=== PATIENT | female | born 1960 | race Caucasian/White ===

== ENCOUNTER 2017-01-11 12:49 | Emergency (ER) | payer OTHER ==
[2017-01-11 12:57] VITALS: RESP 18
--- NOTE | 2017-01-11 13:58 | C.PDOC ---
History Of Present Illness 56 y/o female, with PMHx of arthritis, presents to the ED for evaluation of bilateral hand pain worse in the fingers for the past several days. Describes pain as throbbing and much more severe in the left hand. Also reports tingling sensation to left hand 2nd, 3rd, 4th digits. Notes being seen by Dr. Sol 1 week ago and was prescribed Meloxicam which she has been taking without any improvement. Patient is requesting x-ray of hand. Otherwise, denies any injury, trauma, fever, or any other associated symptoms at this time. Time Seen by Provider: 01/11/17 13:02 Chief Complaint (Nursing): Upper Extremity Problem/Injury History Per: Patient History/Exam Limitations: no limitations Onset/Duration Of Symptoms: Days Current Symptoms Are (Timing): Still Present Quality: Other (throbbing) Exacerbating Factor(s): Nothing Recent travel outside of the [place]: No Additional History Per: Patient Past Medical History Reviewed: Historical Data, Nursing Documentation, Vital Signs Vital Signs: Last Vital Signs Temp 97 F L 01/11/17 14:11 Pulse 65 01/11/17 14:11 Resp 18 01/11/17 14:11 BP 103/69 01/11/17 14:11 Pulse Ox 96 01/11/17 15:09 - Medical History PMH: Arthritis, Hypothyroidism Family History: States: Unknown Family Hx - Social History Hx Alcohol Use: No Hx Substance Use: No - Immunization History Hx Tetanus Toxoid Vaccination: No Hx Influenza Vaccination: Yes Hx Pneumococcal Vaccination: No Review Of Systems Except As Marked, All Systems Reviewed And Found Negative. Constitutional: Negative for: Fever, Chills Musculoskeletal: Positive for: Hand Pain Skin: Negative for: Rash, Bruising Neurological: Negative for: Weakness, Numbness Physical Exam - Physical Exam Appears: Non-toxic, No Acute Distress Skin: Normal Color, Warm, Dry Head: Atraumatic, Normacephalic Extremity: Normal ROM (FROM b/l hands), No Tenderness, Capillary Refill (< 2 sec.), No Deformity, No Swelling (no swelling or nodules to bilateral hands) Extremity: Bilateral: Atraumatic, Normal Color And Temperature, Normal ROM Pulses: Left Radial: Normal, Right Radial: Normal Neurological/Psych: Oriented x3, Normal Speech, Normal Motor, Normal Sensation ED Course And Treatment O2 Sat by Pulse Oximetry: 96 (RA) Pulse Ox Interpretation: Normal - Other Rad Left hand x-ray X-Ray: Viewed By Me, Read By Radiologist Interpretation: FINDINGS: BONES: There is no acute displaced fracture or bone destruction. Bone alignment is normal. JOINTS: Normal. No significant osteoarthritic changes. SOFT TISSUES: Normal. OTHER FINDINGS: None. IMPRESSION: No acute fracture or dislocation. Progress Note: Left hand x-ray ordered and reviewed. Patient was treated with Gabapentin. On reassessment, patient is resting comfortably, and is in no acute distress. Patient was instructed to follow up with physician/clinic in 1-2 days. Disposition Counseled Patient/Family Regarding: Diagnosis, Need For Followup, Rx Given - Disposition Referrals: Mckay Sol MD [Staff Provider] - Disposition: HOME/ ROUTINE Disposition Time: 13:58 Condition: STABLE Additional Instructions: Rivera aki X era normal Por favor tome rivera medicamento para el dolor habitual segn lo prescrito [place] gabapentin silvano vez al da y siga con rivera mdico de la artritis Prescriptions: Gabapentin 300 mg PO DAILY #20 capsule Instructions: Arthralgia (ED) Forms: [employer] (Kiswahili) Print Language: BRITISH - POA Present On Arrival: None - Clinical Impression Clinical Impression: Arthralgia of hands, bilateral - PA / FITNESS SPECIALIST / Resident Statement MD/DO has reviewed & agrees with the documentation as recorded. - Scribe Statement The provider has reviewed the documentation as recorded by the Scribe Debra Mulligan All medical record entries made by the Scribe were at my direction and personally dictated by me. I have reviewed the chart and agree that the record accurately reflects my personal performance of the history, physical exam, medical decision making, and the department course for this patient. I have also personally directed, reviewed, and agree with the discharge instructions and disposition.
[2017-01-11 14:13] VITALS: BP 103/69; PULSE 65; TEMP 97
--- NOTE | 2017-01-11 14:34 | RAD ---
PROCEDURE: Left Hand Radiographs. HISTORY: h.o arthritis has pain for months, pt requests xra COMPARISON: None. FINDINGS: BONES: There is no acute displaced fracture or bone destruction. Bone alignment is normal. JOINTS: Normal. No significant osteoarthritic changes. SOFT TISSUES: Normal. OTHER FINDINGS: None. IMPRESSION: No acute fracture or dislocation.
[2017-01-11 15:10] VITALS: O2SAT 96
== END 2017-01-11 14:12 | disposition home or self-care (01) ==
LOC: C.ER 12:49
DX: M79.642 Pain in left hand (principal); M79.641 Pain in right hand

== ENCOUNTER 2017-12-24 09:23 | Emergency (ER) | payer OTHER ==
[2017-12-24 09:49] VITALS: TEMP 98.4
--- NOTE | 2017-12-24 10:42 | C.PDOC ---
History Of Present Illness 57 y/o female w/PMHx of OA, presents to ED with c/o x2 episodes of blood in stool for 3 days. PAtient describes, " noted blood on top of stool and when I wipe myself". Otherwise, pt denies fever, chills, headache, dizziness, weakness , CP, SOB, abd. pain, nausea, vomiting, UTi sx, back pain, denies change in appetite or stool. Pt admits, suffer from intermittent constipation, other denies any other complaints at this time. Ambulate to Ed for evaluation, not in any apparent distress. Time Seen by Provider: 12/24/17 09:54 Chief Complaint (Nursing): GI Problem History Per: Patient History/Exam Limitations: no limitations Onset/Duration Of Symptoms: Days, Waxing/Waning Past Medical History Reviewed: Historical Data, Nursing Documentation, Vital Signs Vital Signs: Last Vital Signs Temp 98.4 F 12/24/17 09:43 Pulse 94 H 12/24/17 09:43 Resp 20 12/24/17 09:43 BP 113/74 12/24/17 09:43 Pulse Ox 99 12/24/17 10:47 - Medical History PMH: Arthritis, Hypothyroidism Surgical History: No Surg Hx Family History: States: No Known Family Hx - Social History Hx Alcohol Use: No Hx Substance Use: No - Immunization History Hx Tetanus Toxoid Vaccination: No Hx Influenza Vaccination: Yes Hx Pneumococcal Vaccination: No Review Of Systems Constitutional: Negative for: Fever, Chills Gastrointestinal: Positive for: Abdominal Pain, Hematochezia. Negative for: Nausea, Vomiting Genitourinary: Negative for: Dysuria Musculoskeletal: Negative for: Back Pain Skin: Negative for: Rash Physical Exam - Physical Exam Appears: Well, Non-toxic, No Acute Distress Skin: Warm, Dry, No Rash Head: Normacephalic Oral Mucosa: Moist Neck: Trachea Midline, Supple Cardiovascular: Rhythm Regular, No Murmur, No JVD Respiratory: No Decreased Breath Sounds, No Accessory Muscle Use, No Rales, No Rhonchi, No Stridor, No Wheezing Gastrointestinal/Abdominal: Soft, No Tenderness, No Distention, No Guarding, No Rebound Rectal: Rectal Tone (normal), Heme Negative, No Maroon Stool, No Melena, Hemorrhoids (small external, non-thrombosed) Back: No CVA Tenderness Extremity: Normal ROM, No Deformity, No Swelling Neurological/Psych: Oriented x3, Normal Speech ED Course And Treatment O2 Sat by Pulse Oximetry: 99 (RA) Pulse Ox Interpretation: Normal - Other Rad Abd, 2 views X-Ray: Interpreted by Me, Viewed By Me Interpretation: (-) air-fluid, (+) gas patternt c/w constipation. Progress Note: On re-eval, pt is afebrile, hemodynamicaly stable, not in any apparent distress. NOn-toxic. ENT: no acute findings, uvula midline, no edema. Neck: Supple, (-) meningeal sign. Lungs: CTA B/L, BS equal B/L. Abd: benign, (-) guarding, (-) rebound. Back: (-) CVA tenderness. Abd xray review, no acute abnormalities. Pt has clinical finidngs c/w external hemorroids. Pt advised. ref. to f/u with PMD, Surgery in 2-3 days for re-eval. return if any new changes. Disposition Counseled Patient/Family Regarding: Studies Performed, Diagnosis, Need For Followup, Rx Given - Disposition Referrals: Apollo Jacobs MD [Staff Provider] - Disposition Time: 10:47 Condition: STABLE Additional Instructions: Encourage fluids take medication as need as prescribed Follow up with PMD, Surgery in 2-3 days for re-evaluation. return if any new changes. Prescriptions: Dibucaine 1 applic TP BID #1 tube Polyethylene Glycol 3350 [Miralax] 17 gm PO DAILY #1 bottle Instructions: High Fiber Diet, Constipation, Adult (DC) Forms: [employer] (Grenadian) Print Language: SLOVENIAN - Clinical Impression Clinical Impression: Hemorrhoids - PA / SENIOR FINANCIAL REPORTING ACCOUNTANT / Resident Statement MD/DO has reviewed & agrees with the documentation as recorded. - Scribe Statement The provider has reviewed the documentation as recorded by the Saray Santiago All medical record entries made by the Saray were at my direction and personally dictated by me. I have reviewed the chart and agree that the record accurately reflects my personal performance of the history, physical exam, medical decision making, and the department course for this patient. I have also personally directed, reviewed, and agree with the discharge instructions and disposition.
--- NOTE | 2017-12-24 11:37 | RAD ---
Date of service: 12/24/2017 HISTORY: pain, constipation COMPARISON: No prior. FINDINGS: BOWEL: Prominent amount of retained colonic stool. No obstruction. No free air. BONES: Normal. OTHER FINDINGS: Calcified cholelithiasis. IMPRESSION: Prominent amount of retained colonic stool. Calcified cholelithiasis.
[2017-12-24 11:53] VITALS: BP 128/74; PULSE 80; RESP 18; O2SAT 97
== END 2017-12-24 11:53 | disposition home or self-care (01) ==
LOC: C.ER 09:23
DX: K64.4 Residual hemorrhoidal skin tags (principal)

== ENCOUNTER 2018-02-18 05:25 | Emergency (ER) | payer OTHER ==
--- NOTE | 2018-02-18 05:38 | C.PDOC ---
History Of Present Illness pt woke up with epigastric pain with nausea and vomiting. Pain radiating to the back. No f/c/ Tolerating po. Dull cramping pain Time Seen by Provider: 02/18/18 05:37 Chief Complaint (Nursing): Abdominal Pain History Per: Patient History/Exam Limitations: no limitations Onset/Duration Of Symptoms: Days Current Symptoms Are (Timing): Still Present Context: Other Severity: Moderate Pain Scale Rating Of: 4 Radiation Of Pain To:: Back Quality Of Discomfort: Sharp, Cramping Associated Symptoms: Nausea, Vomiting. denies: Fever, Chills Exacerbating Factors: None Alleviating Factors: None Last Bowel Movement: Yesterday Recent travel outside of the [place]: No Additional History Per: Patient Abnormal Vaginal Bleeding: No Past Medical History Reviewed: Historical Data, Nursing Documentation, Vital Signs Vital Signs: Last Vital Signs Temp 97.8 F 02/18/18 05:33 Pulse 117 H 02/18/18 05:33 Resp 20 02/18/18 05:33 BP 117/75 02/18/18 05:33 Pulse Ox 97 02/18/18 06:19 - Medical History PMH: Arthritis, Gall Bladder Disease, Hypothyroidism, Pneumonia Family History: States: No Known Family Hx - Social History Hx Alcohol Use: No Hx Substance Use: No - Immunization History Hx Tetanus Toxoid Vaccination: No Hx Influenza Vaccination: No Hx Pneumococcal Vaccination: No Review Of Systems Constitutional: Negative for: Fever, Chills Cardiovascular: Negative for: Chest Pain Respiratory: Negative for: Shortness of Breath Gastrointestinal: Positive for: Nausea, Vomiting, Abdominal Pain Genitourinary: Negative for: Dysuria Musculoskeletal: Positive for: Back Pain Skin: Negative for: Rash Neurological: Negative for: Weakness Psych: Negative for: Anxiety Physical Exam - Physical Exam Appears: Non-toxic, No Acute Distress Skin: Warm, Dry Head: Normacephalic Oral Mucosa: Moist Neck: Supple Chest: Symmetrical Cardiovascular: Rhythm Regular Respiratory: No Rales, No Rhonchi, No Wheezing Gastrointestinal/Abdominal: Soft, Tenderness, No Distention, No Guarding Back: CVA Tenderness (left) Extremity: Normal ROM Extremity: Bilateral: Atraumatic Neurological/Psych: Oriented x3 Gait: Steady ED Course And Treatment - Laboratory Results Result Diagrams: 02/18/18 05:51 02/18/18 05:51 O2 Sat by Pulse Oximetry: 97 Disposition Counseled Patient/Family Regarding: Studies Performed, Diagnosis - Disposition Disposition Time: 05:38 Condition: FAIR Forms: [employer] (Sami) - Clinical Impression Clinical Impression: Abdominal pain, Elevated liver enzymes Physician Patient Turnover Patient Signed Over To: Patricia Villavicencio Handoff Comments: pending ct , re-eval and dispo
[2018-02-18] MEDS ORDERED: Sodium Chloride 0.9% 1,000 ML IV ONE (05:39)
[2018-02-18] MEDS ORDERED: Sodium Chloride 0.9% 1,000 ML ONE (05:55)
[2018-02-18 05:57] LABS: BASO # 0.1 K/uL (0.0-0.2); BASO % 0.7 % (0.0-2.0); EOS # 0.5 K/uL (0.0-0.7); EOS % 5.5 % (0.0-4.0); HEMOGLOBIN 11.5 g/dL (11.0-16.0); LYMPH # 2.5 K/uL (1.0-4.3); LYMPH % 27.8 % (20.0-40.0); MEAN CELL VOLUME 84.7 fL (81.0-99.0); MEAN CORPUSCULAR HEMOGLOBIN 27.6 pg (27.0-31.0); MEAN CORPUSCULAR HGB CONC 32.6 g/dL (33.0-37.0); MEAN PLATELET VOLUME 6.7 fL (7.2-11.7); MONO # 0.4 K/uL (0.0-0.8); MONO % 4.8 % (0.0-10.0); NEUT # 5.6 K/uL (1.8-7.0); NEUT % 61.2 % (50.0-75.0); NRBC % 0.1 % (0.0-2.0); RBC 4.16 Mil/uL (3.80-5.20); RED CELL DISTRIBUTION WIDTH 16.6 % (11.5-14.5); WHITE BLOOD COUNT 9.1 K/uL (4.8-10.8)
[2018-02-18 06:16] LABS: ALB/GLOB RATIO 0.7 (1.0-2.1); ALBUMIN 2.9 g/dL (3.5-5.0); ALT/SGPT 284 U/L (9-52); AST/SGOT 312 U/L (14-36); BLOOD UREA NITROGEN 10 mg/dL (7-17); CALCIUM 8.1 mg/dl (8.6-10.4); GFR NON-AFRICAN AMERICAN > 60; LIPASE 23 U/L (23-300)
[2018-02-18 06:49] LABS: HCG,QUALITATIVE URINE NEGATIVE (NEGATIVE)
[2018-02-18 06:53] LABS: SQUAMOUS EPITHIAL 3 /hpf (0-5); URINE BILIRUBIN NEGATIVE (NEGATIVE); URINE CLARITY Clear (Clear); URINE COLOR Yellow (YELLOW); URINE GLUCOSE (UA) NORMAL (Normal); URINE LEUKOCYTE ESTERASE 3+ Leu/uL (Negative); URINE PROTEIN NEGATIVE (NEGATIVE); URINE UROBILINOGEN NORMAL mg/dL (0.2-1.0)
[2018-02-18 07:03] LABS: URINE BACTERIA RARE (<OCC); URINE BLOOD TRACE (NEGATIVE)
[2018-02-18] MEDS ORDERED: Iodixanol 320 MG/ML 100 ML BOTTLE IV ONE (07:24)
[2018-02-18 07:32] VITALS: RESP 16
--- NOTE | 2018-02-18 10:11 | CT ---
Date of service: 02/18/2018 PROCEDURE: CT Abdomen and Pelvis with contrast HISTORY: Elevated liver enzymes COMPARISON: None. TECHNIQUE: CT scan of the abdomen and pelvis was performed after administration of intravenous contrast. Oral contrast was not administered. Coronal and sagittal reformatted images were obtained. Contrast dose: 100 mL Visipaque Radiation dose: Total exam DLP = 375.73 mGy-cm. This CT exam was performed using one or more of the following dose reduction techniques: Automated exposure control, adjustment of the mA and/or kV according to patient size, and/or use of iterative reconstruction technique. FINDINGS: LOWER THORAX: There is subsegmental atelectasis in the lung bases. There is moderate cardiomegaly and small pericardial effusion LIVER: Mild hepatomegaly and diffuse fatty liver 0. No gross lesion or ductal dilatation. GALLBLADDER AND BILE DUCTS: The gallbladder is markedly distended and there are is a solitary calcified gallstone. No evidence for wall thickening or pericholecystic fluid. PANCREAS: Normal in size with homogeneous enhancement. No gross lesion or ductal dilatation. SPLEEN: Normal in size and appearance. ADRENALS: No discrete nodule. KIDNEYS AND URETERS: Normal in size with homogeneous enhancement. No hydronephrosis. No solid mass. VASCULATURE: No aortic aneurysm. BOWEL: The small bowel loops are normal in caliber. There is moderate amount of stool scattered in the colon. No bowel wall thickening or obstruction PICC APPENDIX: Normal appendix. PERITONEUM: No free fluid. No free air. LYMPH NODES: No enlarged lymph nodes. BLADDER: Well distended and normal in appearance. REPRODUCTIVE: The uterus is normal in size. BONES: No acute fracture. Within normal limits for the patient's age. OTHER FINDINGS: None. IMPRESSION: Distended gall bladder an solitary calcified gallstone. Correlation with right upper quadrant ultrasound is recommended to evaluate for acute cholecystitis. Mild hepatomegaly and fatty liver.
--- NOTE | 2018-02-18 11:36 | US ---
Date of service: 02/18/2018 HISTORY: ruq pain r/o cholecystitis COMPARISON: None. TECHNIQUE: Sonographic evaluation of the right upper quadrant of the abdomen. FINDINGS: LIVER: Measures 15.04 cm in length. Patent portal vein. Portal venous flow: Hepatopetal. Unremarkable echogenicity of the liver parenchyma. No mass. No intrahepatic bile duct dilatation. GALLBLADDER: Cholelithiasis. Negative study for gallbladder wall thickening, pericholecystic fluid, sonographic Walton's sign. COMMON BILE DUCT: Measures 3.5 mm. No stones. No dilatation. PANCREAS: Unremarkable as visualized. No mass. No ductal dilatation. RIGHT KIDNEY: Measures 3.7 x 10.5 cm in length. Normal echogenicity. No calculus, mass, or hydronephrosis. AORTA: No aneurysmal dilatation. IVC: Unremarkable. OTHER FINDINGS: None . IMPRESSION: Cholelithiasis. No sonographic evidence of acute cholecystitis.
[2018-02-18 12:27] VITALS: BP 108/66; PULSE 91; TEMP 98.6; O2SAT 99
== END 2018-02-18 12:53 | disposition home or self-care (01) ==
LOC: C.ER 05:25
DX: R10.13 Epigastric pain (principal); R74.8 Abnormal levels of other serum enzymes
CPT/HCPCS: 74177; 76705; 80053; 81001; 83690; 84703; 85025; 96361; 96374; 96375; 99284; C9113; J1885; J7030; Q9967